=== PATIENT | male | born 1945 | race Caucasian/White ===

== ENCOUNTER → 2017-04-12 | Outpatient (CLI) | payer BC | END | disposition home or self-care (01) | LOC: PCVCIMAG 14:44 | PROVIDERS: ATTEND Internal Medicine Cardiovascular Disease | DX: I34.0 Nonrheumatic mitral (valve) insufficiency (principal); I10 Essential (primary) hypertension; E11.9 Type 2 diabetes mellitus without complications; I25.10 Atherosclerotic heart disease of native coronary artery without angina pectoris; I49.3 Ventricular premature depolarization; Z95.2 Presence of prosthetic heart valve | CPT/HCPCS: 93325; 93351 ==

== ENCOUNTER → 2017-11-01 | Outpatient (CLI) | payer BC ==
--- NOTE | 2017-11-01 19:36 | PCVCIMAG ---
EXAM: BILATERAL RENAL ULTRASOUND AND BILATERAL RENAL DUPLEX INDICATION: Hypertension FINDINGS: Right kidney: Length measures 12.9 cm. No hydronephrosis or extensive renal scarring. 1.3 cm benign cyst upper pole. Right renal duplex: Adequate technical quality. No sonographic evidence of renal artery stenosis. The aortic to renal artery ratio is 1.8. The renal vein is patent. Left kidney: Length measures 13.3 cm. No hydronephrosis or extensive renal scarring. 5.2 x 5.3 x 5.9 cm benign cyst lower pole. Left renal duplex: Adequate technical quality. No sonographic evidence of renal artery stenosis. The aortic to renal artery ratio is 2.1. The renal vein is patent. Bladder: No obvious abnormalities. IMPRESSION: No significant renal artery stenosis. No hydronephrosis bilaterally. LOC:[place] [id number]
== END | disposition home or self-care (01) ==
LOC: PCVCIMAG 08:29
PROVIDERS: ATTEND Internal Medicine Cardiovascular Disease
DX: N28.1 Cyst of kidney, acquired (principal); I10 Essential (primary) hypertension
CPT/HCPCS: 76770; 93975

== ENCOUNTER → 2018-01-27 | Outpatient (CLI) | payer BC | END | disposition home or self-care (01) | LOC: PCVCIMAG 14:11 | DX: I25.10 Atherosclerotic heart disease of native coronary artery without angina pectoris (principal); I10 Essential (primary) hypertension; E78.00 Pure hypercholesterolemia, unspecified; E11.21 Type 2 diabetes mellitus with diabetic nephropathy; I08.0 Rheumatic disorders of both mitral and aortic valves; Z95.2 Presence of prosthetic heart valve; Z87.891 Personal history of nicotine dependence; Z79.899 Other long term (current) drug therapy; Z79.82 Long term (current) use of aspirin; Z79.01 Long term (current) use of anticoagulants | CPT/HCPCS: 80061; 93005; 93306 ==

== ENCOUNTER → 2018-08-14 | Outpatient (CLI) | payer BC ==
--- NOTE | 2018-08-14 18:39 | PCVCIMAG ---
EXAM: BILATERAL LOWER EXTREMITY ARTERIAL DUPLEX INDICATION: Peripheral Arterial Disease. Leg pain. FINDINGS: Right Leg: Common femoral and profunda femoral arteries are patent. Increased systolic velocity 340 cm/s mid [place] superficial femoral artery consistent with 80% stenosis. Popliteal artery is patent. Anterior tibial and peroneal arteries are patent throughout. The posterior tibial artery becomes small in size distally. Left Leg: Common femoral and profunda femoral arteries are patent. Superficial femoral artery shows adequate patency throughout as does the popliteal artery. The anterior tibial, peroneal, and posterior tibial arteries are patent. IMPRESSION: 80% stenosis mid [place] right superficial femoral artery. No flow limiting stenosis in the left lower extremity. LOC:[id number]
== END | disposition home or self-care (01) ==
LOC: PCVCIMAG 12:59
PROVIDERS: ATTEND Internal Medicine Cardiovascular Disease
DX: I73.9 Peripheral vascular disease, unspecified (principal)
CPT/HCPCS: 93925

== ENCOUNTER → 2018-08-15 | Outpatient (CLI) | payer BC ==
[~2018-08-15] MED LIST: CLOPIDOGREL BISULFATE 75 MG TABLET ONE; DIAZEPAM 10 MG TABLET. ONE; HEPARIN SODIUM 5,000 UNIT/ML VIAL for PCVC. ONE; HEPARIN for IV BOLUS 10,000 UNIT/10 ML VIAL. ONE; IODIXANOL 270 MG/ML 100 ML VIAL. ONE; IOHEXOL 350 MG/ML 100 ML VIAL. ONE; IOHEXOL 350 MG/ML 50 ML VIAL. ONE; IV NORMAL SALINE 1000ML BAG 1,000 ML ONE; IV NORMAL SALINE 500ML BAG 1,500 ML ONE; LIDOCAINE 1%/EPI 1:100,000 20 ML VIAL. ONE; MIDAZOLAM HCL/PF 2 MG/2 ML VIAL. ONE; VANCOMYCIN 1GM IVPB FOR OMNI 0 ML ONE; fentaNYL PF VIAL 100 MCG/2 ML VIAL ONE
--- NOTE | 2018-08-15 17:53 | PCVCINTER ---
EXAM: 1. AORTOGRAM AND BILATERAL LOWER EXTREMITY RUNOFF ANGIOGRAM 2. BILATERAL RENAL ANGIOGRAPHY 3. RIGHT COMMON ILIAC ARTERY STENT PLACEMENT. 4. LEFT COMMON ILIAC ARTERY STENT PLACEMENT. INDICATION: Peripheral arterial disease. Coronary artery disease. Nonhealing ulcer right lower extremity. Hypertension. Renal atherosclerosis. No prior catheter based angiographic study is available. A full diagnostic angiogram study is performed today and the decision to intervene is based on this diagnostic study. PROCEDURE: Procedure and risks of angiography intervention is appropriate including limb loss stroke and were discussed with the patient's family and consent obtained. The patient's left groin was prepped in the normal sterile fashion. IV conscious sedation was used throughout procedure with appropriate monitoring from 10:45 AM through 12:15 PM. Ultrasound was used to interrogate the left groin and showed the left common femoral artery to be patent. A permanent spot film was obtained. Under ultrasound guidance access into the left common femoral artery was obtained and a 5 [place] sheath was placed. Through this a 5 [place] flush catheter was placed into the abdominal aorta at the level of the renal arteries and AP aortogram was performed. Catheter was positioned at the aortic bifurcation and both oblique views of the pelvis were obtained. Catheter was positioned into the left external iliac artery and left leg runoff angiography was performed. Catheter was exchanged for a visceral catheter was placed into the right renal arteries and right renal angiograms obtained. Catheter was placed into the the left renal arteries and left renal angiograms were obtained. Catheter was advanced to the level of the right external iliac artery and right leg runoff angiography was obtained. The right groin was prepped and draped in the normal sterile fashion. Under ultrasound guidance access into the right common femoral artery was obtained and a 7 [place] sheath was placed. Patient was given 4000 units of heparin. Stent placement across the areas of high-grade stenosis in the right common iliac artery was carried out with a 7 x 39 [place] stent with subsequent dilatation to 8.0 mm. Stent placement across the areas of high-grade stenosis in the left common iliac artery was carried out with a 8 x 39, malia stent with subsequent dilatation to 8.0 mm. Follow-up angiogram was performed. Catheters and wires removed. Dr. Rvias joined the procedure and he performed coronary angiography. Please see his separate dictation for full details. Sheath was removed and hemostasis obtained using the FISH device. No immediate complications. FINDINGS: Aortogram: There are 2 right and one left renal artery. Moderately extensive plaque in the infrarenal abdominal aorta without flow-limiting stenosis. Pelvis: Extensive plaque origin right common iliac artery causing 80% stenosis. High-grade stenosis proximal internal iliac artery on the right. Right external iliac artery is patent. Extensive plaque origin left common iliac artery causing 90% stenosis. Moderate stenosis left internal iliac artery. Minimal stenosis proximal left external iliac artery. Right common femoral and profunda femoral arteries are patent. Moderate plaque mid left common femoral artery does not cause flow-limiting stenosis. Left profunda femoral arteries patent. Right renal artery: There are 2 right renal arteries. Upper renal artery is dominant showing moderate plaque proximally which does not cause significant stenosis. Lower artery is a small accessory renal artery showing adequate patency. Left renal artery: Minimal plaque proximal vessel does not cause significant stenosis. Right leg: Extensive bulky plaque mid/distal superficial femoral artery causes several areas of 90% stenosis. Eccentric bulky plaque mid popliteal artery causing 60-70% stenosis. Three-vessel runoff into the foot. Left leg: Moderate plaque mid/distal superficial femoral artery causing 90% stenosis in the distal vessel. Moderate plaque mid popliteal artery causing moderate stenosis. Three-vessel runoff into the foot with the distal posterior tibial artery becoming diminutive in size and plantar arteries being highly disease. Right common iliac artery: Following procedure as above vessel shows satisfactory patency. Left common iliac artery: Following procedure as above vessel shows satisfactory patency. IMPRESSION: Extensive plaque right and left common iliac arteries causing high-grade stenoses were treated as above with satisfactory patency restored. Extensive plaque mid/distal right and left superficial femoral arteries causing areas of high-grade stenosis at detailed above. Given the extensive plaque we would not favor percutaneous intervention unless short distance claudication, rest pain, or nonhealing ulcers were present. LOC:[place] [id number]
--- NOTE | 2018-08-16 18:50 | PCVCINTER ---
APPROVED REPORT Study performed: 08/15/2018 11:13:41 Patient Details Patient Status: Room #: 3 The patient is a 73 year-old Male Event Personnel Tito Montalvo RT(R), Radha Grayson RN, Varsha Menard RT(R)() Risk Factors Arterial HypertensionDysplipidemia (Type: 1), Family HistoryPeripheral Vascular Disease, Hypercholesterolemia, Diabetes Last Creatanine 1.2Tobacco History (Former) Previous Procedures/Diagnoses Previous Valve Surgery, CAD, Diabetes, Hypertension, Valvular heart disease Procedure Narrative A 6F sheath was inserted into the right femoral artery. Coronary angiography was performed using coronary diagnostic catheters. The right coronary system was accessed and visualized with a JR4 catheter. The left coronary system was accessed and visualized with a JL4 catheter. An aortogram of the AORTIC ROOT was performed. Closure device was deployed with a 8 Fr FISH. The patient tolerated the procedure well and there were no complications associated with the procedure. There was no hematoma. Hemodynamics The aortic pressure is 178/60 mmHg with a mean of 107 mmHg. Conclusion #1 supravalvular aortography in mild aortic insufficiency through prosthetic aortic valve #2 left main large giving rise to LAD and circumflex #3 The LAD is mildly disease eccentric 60% distal lesion or prior to the apex no high-grade occlusive disease #4 circumflex OM with mild disease and eccentric 50-60% proximal lesion well preserved distal vessel #5 dominant right but smaller in caliber with diffuse disease mid vessel 50-60% with a small diffusely disease PDA Recommendations and plan continue aggressive risk factor modification no evidence for coronary intervention. Acetic aortic valve appears to be functioning appropriately with mild aortic insufficiency
== END | disposition home or self-care (01) ==
LOC: PCVCINTER 12:51
PROVIDERS: ATTEND Internal Medicine Cardiovascular Disease
DX: I25.10 Atherosclerotic heart disease of native coronary artery without angina pectoris (principal); I35.1 Nonrheumatic aortic (valve) insufficiency; I70.238 Atherosclerosis of native arteries of right leg with ulceration of other part of lower leg; L97.818 Non-pressure chronic ulcer of other part of right lower leg with other specified severity; I70.1 Atherosclerosis of renal artery; I70.0 Atherosclerosis of aorta; I70.292 Other atherosclerosis of native arteries of extremities, left leg; I10 Essential (primary) hypertension; Z82.49 Family history of ischemic heart disease and other diseases of the circulatory system; Z87.891 Personal history of nicotine dependence; Z72.89 Other problems related to lifestyle; Z79.899 Other long term (current) drug therapy; Z79.84 Long term (current) use of oral hypoglycemic drugs; Z79.82 Long term (current) use of aspirin; E78.00 Pure hypercholesterolemia, unspecified; Z95.2 Presence of prosthetic heart valve; E11.21 Type 2 diabetes mellitus with diabetic nephropathy; F52.8 Other sexual dysfunction not due to a substance or known physiological condition; D50.0 Iron deficiency anemia secondary to blood loss (chronic); G25.81 Restless legs syndrome
CPT/HCPCS: 36252; 37221; 75716; 76937; 93458; 93567; 99152; 99153; C1713; C1725; C1751; C1769; C1876; C1894; J1644; J2250; J3010; J3490; J7030; J7040; Q9967; J3370

== ENCOUNTER → 2019-01-12 | Outpatient (CLI) | payer BC ==
--- NOTE | 2019-01-12 10:01 | PCVCIMAG ---
EXAM: AORTOILIAC DUPLEX INDICATION: Peripheral arterial disease FINDINGS: AORTA: Suprarenal aorta measures maximum diameter of 2.6 cm. There is not a fusiform infrarenal aortic aneurysm. The infrarenal aorta measures maximum diameter of 2.7 cm. No aortic stenosis. RIGHT COMMON ILIAC ARTERY: Maximum diameter is 1.3 cm. No significant stenosis. RIGHT EXTERNAL ILIAC ARTERY: No significant stenosis. LEFT COMMON ILIAC ARTERY: Maximum diameter is 1.4 cm. No significant stenosis. LEFT EXTERNAL ILIAC ARTERY: No significant stenosis. IMPRESSION: No abdominal aortic aneurysm. No aortoiliac stenosis seen. Previous bilateral common iliac artery stents maintaining satisfactory patency. LOC:[id number]
--- NOTE | 2019-01-12 11:49 | PCVCIMAG ---
EXAM: NONINVASIVE ARTERIAL EXAMINATION OF BOTH LOWER EXTREMITIES INCLUDING PRESSURE MEASUREMENTS AND DOPPLER WAVEFORMS INDICATION: Peripheral Arterial Disease. Leg pain. FINDINGS: Right Brachial: 213 mm Hg. Right Dorsalis Pedis: 249 mm Hg. Right Posterior Tibial: Noncompressible Right YAZ = 1.17. Left Brachial: 209 mm Hg. Left Dorsalis Pedis: Noncompressible Left Posterior Tibial: Noncompressible Left YAZ = . IMPRESSION: Arteries the lower extremity were noncompressible consistent with diffuse arterial calcification. LOC:[id number]
== END | disposition home or self-care (01) ==
LOC: PCVCIMAG 08:18
PROVIDERS: ATTEND Nuclear Medicine Nuclear Cardiology
DX: I73.9 Peripheral vascular disease, unspecified (principal); I77.9 Disorder of arteries and arterioles, unspecified
CPT/HCPCS: 93922; 93978

== ENCOUNTER → 2019-02-13 | Outpatient (CLI) | payer BC ==
--- NOTE | 2019-02-13 11:36 | PCVCIMAG ---
EXAM: BILATERAL CAROTID DUPLEX INDICATION: Carotid Occlusive Disease. FINDINGS: Doppler Measurements (centimeters per second): RIGHT: Peak CCA-63, Peak ECA-102, Diastolic ICA-20, Peak ICA-152, ICA/CCA Ratio-2.4. LEFT: Peak CCA-89, Peak ECA-299, Diastolic ICA-22, Peak ICA-148, ICA/CCA Ratio-1.7. RIGHT CAROTID: The carotid bulb has moderate plaque. The proximal internal carotid artery shows 50-60% stenosis. The common carotid artery shows no significant stenosis. The external carotid artery shows no significant stenosis. LEFT CAROTID: The carotid bulb has moderate plaque. The proximal internal carotid artery shows 50-60% stenosis. The common carotid artery shows no significant stenosis. The external carotid artery shows 80% stenosis. Antegrade flow in both vertebral arteries. IMPRESSION: 50-60% stenosis of the right internal carotid artery with moderate plaque. 50-60% stenosis of the left internal carotid artery with moderate plaque. LOC:[id number]
== END | disposition home or self-care (01) ==
LOC: PCVCIMAG 11:39
PROVIDERS: ATTEND Internal Medicine Cardiovascular Disease
DX: I65.23 Occlusion and stenosis of bilateral carotid arteries (principal)
CPT/HCPCS: 93880

== ENCOUNTER → 2019-09-05 | Outpatient (CLI) | payer BC ==
--- NOTE | 2019-09-05 15:13 | PCVCIMAG ---
APPROVED REPORT Study performed: 09/05/2019 13:30:20 EXAM: Comprehensive 2D, Doppler, and color-flow Echocardiogram Patient Location: Echo lab Status: routine BSA: 1.93 HR: 63 bpmBP: 128/74 mmHg Rhythm: NSR Other Information Study Quality: Good Risk Factors: Cardiac Risk Factors: HTN, Hyperlipidemia, DM Indications Aortic Valve Disease CAD #21 [place] mechanical aortic valve, PAD 2D Dimensions IVSd: 16.07 (7-11mm)LVOT Diam: 21.38 (18-24mm) LVDd: 37.39 mm PWd: 16.07 (7-11mm)Ascending Ao: 31.05 (22-36mm) LVDs: 29.49 (25-40mm) Left Atrium: 58.69 (27-40mm) Aortic Root: 33.94 mm LV Single Plane 4CH: 71.47 % LV Single Plane 2CH: 67.36 % Volumes Left Atrial Volume (Systole) Single Plane 4CH: 86.89 mLSingle Plane 2CH: 89.03 mL LA ESV Index: 48.00 mL/m2 Aortic Valve AoV Peak Jean.: 2.64 m/s AO Peak Gr.: 27.81 mmHgLVOT Max P.12 mmHg AO Mean Gr.: 13.26 mmHgLVOT Mean P.32 mmHg AO V2 Mean: 1.72 m/sLVOT Max V: 1.13 m/s AO V2 VTI: 47.46 cmLVOT Mean V: 0.71 m/s NATHAN (VTI): 1.79 [id number] V1 VTI: 23.71 cm NATHAN Vmax: 1.54 cm2 SV (LVOT): 85.10 mL Mitral Valve MV Peak Gr.: 13.66 mmHg MV Mean Gr.: 6.28 mmHg MV Decel. Time: 290.75 ms MV Max Jean.: 1.85 m/s MV Mean Jean.: 1.18 m/s MV VTI: 583.67 mm MVA VTI: 145.80 mm2 MV PHT: 128.32 ms MVA (PHT): 1.71 cm2 IVRT: 121.11 ms TDI Medial E' Jean.: 0.04 m/s Lateral E' Jean.: 0.07 m/s Pulmonary Valve PV Peak Gr.: 2.58 mmHg Pulmonary Vein P Vein S: 0.47 m/sP Vein A: 0.42 m/s P Vein D: 0.57 m/sP Vein A Dur.: 110.7 msec P Vein S/D Ratio: 0.82 Left Ventricle The left ventricle is normal size. There is normal LV segmental wall motion. Moderate concentric left ventricular hypertrophy. Left ventricular systolic function is normal. The left ventricular ejection fraction is within the normal range. LVEF is 60-65%. Grade I - abnormal relaxation pattern. Right Ventricle The right ventricle is normal size. The right ventricular systolic function is normal. Atria Left atrium is moderately dilated. The right atrium size is normal. Aortic Valve #21 [place] mechanical aortic valve. Peak gradient is 28mmHg. Mean gradient is 13mmHg. calculated aortic valve is 1.5cm2. Trace aortic regurgitation. There is no aortic valvular stenosis. Mitral Valve Mitral valve leaflets are mildly thickened. Severe mitral annular calcification. Mild mitral regurgitation. Mitral valve peak gradient 14mmhg. Mean gradient is 6mmHg. Mitral valve area by pressure half time 1.7cm2 Tricuspid Valve The tricuspid valve is normal in structure. Trace tricuspid regurgitation. Pulmonic Valve The pulmonary valve is normal in structure. There is no pulmonic valvular regurgitation. Great Vessels The aortic root is normal in size. IVC is normal in size and collapses >50% with inspiration. Pericardium There is no pericardial effusion. <Conclusion> The left ventricle is normal size. Moderate concentric left ventricular hypertrophy. LVEF is 60-65%. Grade I - abnormal relaxation pattern. The right ventricle is normal size. Left atrium is moderately dilated. #21 [place] mechanical aortic valve. Peak gradient is 28mmHg. Mean gradient is 13mmHg. calculated aortic valve is 1.5cm2. Trace aortic regurgitation. Mitral valve leaflets are mildly thickened. Severe mitral annular calcification. Mild mitral regurgitation. Trace tricuspid regurgitation. The aortic root is normal in size. There is no pericardial effusion.
== END | disposition home or self-care (01) ==
LOC: PCVCIMAG 13:23
PROVIDERS: ATTEND Internal Medicine Cardiovascular Disease
DX: I34.0 Nonrheumatic mitral (valve) insufficiency (principal); I10 Essential (primary) hypertension; I25.10 Atherosclerotic heart disease of native coronary artery without angina pectoris; Z95.2 Presence of prosthetic heart valve; Z87.891 Personal history of nicotine dependence
CPT/HCPCS: 93306